=== PATIENT | female | born 1965 | race African-American/Black ===

== ENCOUNTER 2016-11-02 12:18 | Emergency (ER) | payer OTHER ==
--- NOTE | 2016-11-02 14:03 | ED ---
Headache - HPI Summary HPI Summary: Patient is a 51yo F with no onset AZEVEDO. She does not have a history of migraines and notes the AZEVEDO is "worst of life." The pain is located in the occipital area and does not radiate. She also notes to "pressure" over the temporal region. Onset of AZEVEDO was 2 days ago and improved with Ibuprofen. She was able to go to work today and felt a 2/10 pain AZEVEDO this am upon wakening. During the day, the AZEVEDO became worse and now she notes to 10/10. She endorses photophobia and nausea with 1 episode of vomiting yesterday. Shes states she has not eaten yet today. Denies HTN or other cardiac history. Denies thyroid hx. Denies OCP use , recent travel or smoking. She takes no medications and is otherwise healthy. - History Of Current Complaint Chief Complaint: EDHeadache Stated Complaint: HEADACHE Time Seen by Provider: 11/02/16 12:58 Hx Obtained From: Patient Hx Last Menstrual Period: 28 days ago Onset/Duration: Sudden Onset Initially Headache Was: "Worst Headache Ever", Initial Pain Scale(0-10)= - 10 Timing: Constant Character: Sharp, Throbbing Location of Headache: Occipital Aggravating Factor: Bright Lights Associated Signs And Symptoms: Nausea - Risk Factors SAH Risk Factors: -Sudanese Meningitis Risk Factors: Negative SDH Risk Factors: Negative Temporal Arteritis Risk Factors: Female - Allergies/Home Medications Allergies/Adverse Reactions: Allergies Allergy/AdvReac Type Severity Reaction Status Date / Time No Known Allergies Allergy Verified 11/02/16 12:20 PMH/Surg Hx/FS Hx/Imm Hx Previously Healthy: Yes Endocrine/Hematology History: Reports: Hx Anemia Denies: Hx Diabetes, Hx Thyroid Disease Cardiovascular History: Denies: Hx Hypertension, Other Cardiovascular Problems/Disorders Respiratory History: Denies: Hx Asthma, Hx Chronic Obstructive Pulmonary Disease (COPD), Other Respiratory Problems/Disorders GI History: Denies: Hx Ulcer, Other GI Disorders Musculoskeletal History: Denies: Other Musculoskeletal History Sensory History: Reports: Hx Contacts or Glasses - GLASSES Denies: Hx Hearing Aid Opthamlomology History: Reports: Hx Contacts or Glasses - GLASSES Neurological History: Denies: Other Neuro Impairments/Disorders - Surgical History Surgery Procedure, Year, and Place: TONSILLECTOMY-AGE 22. 3 [id number]/ [facility] [place]. tTIB/FIB FRACTURE LEFT ANKLE REPAIR-[facility]. RIGHT CARPAL TUNNEL RELEASE-2008 -[facility]. 3 ABORTIONS WHEN YOUNGER Hx Anesthesia Reactions: No Infectious Disease History: No Infectious Disease History: Denies: Hx Hepatitis, Hx Human Immunodeficiency Virus (HIV), Traveled Outside the [place] in Last 30 Days - Social History Alcohol Use: Weekly Alcohol Amount: WEEKENDS Substance Use Type: Reports: None Smoking Status (MU): Former Smoker Type: Cigarettes Amount Used/How Often: 1 PPD X 12 YRS Length of Time of Smoking/Using Tobacco: 12 YRS Have You Smoked in the Last Year: No Review of Systems Constitutional: Negative Positive: Photophobia ENT: Negative Cardiovascular: Negative Respiratory: Negative Positive: no symptoms reported, see HPI Musculoskeletal: Negative Positive: Headache, Weakness Psychological: Normal All Other Systems Reviewed And Are Negative: Yes Physical Exam Triage Information Reviewed: Yes Vital Signs On Initial Exam: Initial Vitals Temp Pulse Resp BP Pulse Ox 98.3 F 67 16 172/90 100 11/02/16 12:21 11/02/16 12:21 11/02/16 12:21 11/02/16 12:21 11/02/16 12:21 Vital Signs Reviewed: Yes Appearance: Positive: Ill-Appearing, Pain Distress Skin: Positive: Warm, Skin Color Reflects Adequate Perfusion Head/Face: Positive: Normal Head/Face Inspection Eyes: Positive: EOMI, GREGORIO, Conjunctiva Clear Neck: Positive: Supple, No Lymphadenopathy Respiratory/Lung Sounds: Positive: Clear to Auscultation, Breath Sounds Present Cardiovascular: Positive: Normal, RRR Musculoskeletal: Positive: Normal Neurological: Positive: Normal, Sensory/Motor Intact, Alert, Oriented to Person Place, Time, Normal Gait, Speech Normal Psychiatric: Positive: Normal AVPU Assessment: Alert - Jing Coma Scale Best Eye Response: 4 - Spontaneous Best Motor Response: 6 - Obeys Commands Best Verbal Response: 5 - Oriented Coma Scale Total: 15 Diagnostics - Vital Signs Vital Signs Temp Pulse Resp BP Pulse Ox 11/02/16 13:00 60 138/76 99 11/02/16 12:44 64 99 11/02/16 12:42 136/73 11/02/16 12:21 98.3 F 67 16 172/90 100 - Laboratory Result Diagrams: 11/02/16 14:55 11/02/16 14:55 Lab Statement: Any lab studies that have been ordered have been reviewed, and results considered in the medical decision making process. Headache Course/Dx - Course Course Of Treatment: New onset AZEVEDO in a 51yo female. Occipital AZEVEDO with neck pain. Sudden onset was yesterday, improved with Ibuprofen, then worse today which did not improve with Ibuprofen. Photophobia and nausea associated. "Worst AZEVEDO of life" prompted CT brain. Negative for findings. Benadryl 50mg, Toradol (post CT) 30mg IV, Compazine 10mg and 1L fluid given. Patient improved and notes 0/10 pain. LP performed by Dr. Stein with Morena Velasquez PA-C assisting. Patient requested stopping LP after procedure had begun. Patient agreeable to CTA with the understanding the test is not conclusive and will not r/o meningitis, but can r/o SAH. CTA negative. Patient prefers discharge and will follow up with PCP. Explained to patient this could be new onset migraines and she needs a close follow up after discharge. She agrees. No scripts sent, as patient feeling better. - Diagnoses Differential Diagnosis/HQI/PQRI: Subdural Hematoma, Meningitis, Migraine, Tension Headache Provider Diagnoses: Headache Discharge - Discharge Plan Condition: Stable Disposition: HOME Patient Education Materials: Migraine Headache (ED) Referrals: Jamie Mullen MD [Primary Care Provider] - Additional Instructions: Follow up with PCP.
--- NOTE | 2016-11-02 14:04 | RAD ---
Indication: Worst headache of life. Severe headaches. CT of the brain was performed without IV contrast. Comparison is made with previous exam dated October 05, 2002. Ventricular structures are midline. No midline shift is noted. The extra-axial spaces are unremarkable. There is no evidence of intracranial mass or hemorrhage. No other high or low density lesions are identified. Mastoid air cells and paranasal sinuses are otherwise unremarkable. IMPRESSION: There is no evidence of intracranial mass or hemorrhage noted.
[2016-11-02] MEDS ORDERED: Ketorolac INJ* 30 MG/ML 1 ML VIAL IV ONE (14:17)
[2016-11-02] MEDS ORDERED: diPHENhydraMINE IV* 50 MG/ML 1 ml VIAL (BENADRYL) IM ONE (14:17)
[2016-11-02] MEDS ORDERED: PROCHLORPERAZINE INJ 5 MG/ML 2 ML VIAL IV PRN (14:18)
[2016-11-02] MEDS ORDERED: diPHENhydraMINE IV* 50 MG/ML 1 ml VIAL (BENADRYL) IV ONE (14:19)
[2016-11-02 15:05] LABS: Hematocrit 37 % (35-47); Hemoglobin 11.7 g/dl (12.0-16.0); Mean Corpuscular HGB Conc 32 g/dl (31-36); Mean Corpuscular Hemoglobin 25 pg (27-31); Mean Corpuscular Volume 80 fL (80-97); Mean Platelet Volume 9 um3 (7.4-10.4); Red Cell Distribution Width 15 % (10.5-15); White Blood Count 7.9 10^3/ul (3.5-10.8)
[2016-11-02 15:24] LABS: BUN/Creatinine Ratio 12.5 (8-20); Calcium 8.9 mg/dL (8.6-10.3); EGFR African American 125.8 (>60); EGFR Non-African American 97.8 (>60); Globulin 3.1 g/dL (2-4); Potassium 3.4 mmol/L (3.5-5.0); Total Bilirubin 0.4 mg/dL (0.2-1.0); Total Protein 7.1 g/dL (6.4-8.9)
[2016-11-02 16:04] LABS: Erythrocyte Sed Rate 22 mm/Hr (0-30)
[2016-11-02] MEDS ORDERED: Iohexol 350* (CONTRAST) 500 ML MDV IV ONE (16:54)
--- NOTE | 2016-11-02 17:33 | RAD ---
HISTORY: Headache COMPARISONS: Head CT dated November 02, 2016 TECHNIQUE: Multiple contiguous axial CT scans were obtained of the head and neck After the administration of nonionic intravenous contrast timed to the systemic arterial phase of contrast enhancement. Coronal and sagittal multiplanar reformations are submitted for review. Multiple 3-D maximum intensity projection reconstructions are also submitted for review. FINDINGS: CTA NECK: AORTIC ARCH: There is a normal three-vessel branching pattern of the aortic arch. There is no ostial or proximal stenosis of the cephalic great vessels. RIGHT VERTEBRAL ARTERY: The right vertebral artery is patent along its course, without stenosis. LEFT VERTEBRAL ARTERY: The left vertebral artery is patent along its course, without stenosis. DOMINANCE: The vertebral arteries are codominant. RIGHT COMMON CAROTID ARTERY: The right common carotid artery is patent. The right carotid bifurcation occurs at C4-C5 RIGHT INTERNAL CAROTID ARTERY: There is no right internal carotid artery stenosis by NASCET criteria. RIGHT EXTERNAL CAROTID ARTERY: The right external carotid artery is unremarkable. LEFT COMMON CAROTID ARTERY: The left common carotid artery is patent. The left carotid bifurcation occurs at C4-C5 LEFT INTERNAL CAROTID ARTERY: There is no left internal carotid artery stenosis by NASCET criteria. LEFT EXTERNAL CAROTID ARTERY: The left external carotid artery is unremarkable. VENOUS CIRCULATION: The venous system is unremarkable. SALIVARY GLANDS: The parotid glands, submandibular glands, sublingual glands are normal. NASAL CAVITY/NASOPHARYNX: The nasal cavity and nasopharynx are normal. ORAL CAVITY/OROPHARYNX: The oral cavity is obscured by streak artifact from dental amalgam. The visualized oral cavity and oropharynx are unremarkable. LARYNGEAL APPARATUS/HYPOPHARYNX: The laryngeal apparatus and hypopharynx are normal. UPPER AIRWAY/UPPER ESOPHAGUS: The visualized upper airway and esophagus are normal. LUNG APICES: The lung apices are clear. THYROID GLAND: The thyroid gland is normal. LYMPH NODES: There is no lymphadenopathy by size criteria. BONES AND SOFT TISSUES: No bone or soft tissue abnormalities are noted. CTA HEAD: INTRACRANIAL CIRCULATION: There is no aneurysm, vascular malformation, occlusion, or stenosis of the visualized intracranial circulation. The anterior communicating artery complex is clear. Bilateral posterior communicating arteries are identified. VENOUS CIRCULATION: The venous system is unremarkable. PERFUSION: There is no obvious parenchymal perfusion deficit. HEMORRHAGE/INFARCT: There is no hemorrhage or acute infarct. MASSES/SHIFT: There is no mass or shift. EXTRA-AXIAL SPACES: There are no extra-axial fluid collections. SULCI AND VENTRICLES: The sulci and ventricles are normal in size and position for the patient's stated age. CEREBRUM: There are no focal parenchymal abnormalities. BRAINSTEM: There are no focal parenchymal abnormalities. CEREBELLUM: There are no focal parenchymal abnormalities. PARANASAL SINUSES: The paranasal sinuses are clear. ORBITS: The orbits are unremarkable. BONES AND SOFT TISSUE: No bone or soft tissue abnormalities are noted. OTHER: There is no abnormal enhancement. IMPRESSION: 1. NO INTERNAL CAROTID ARTERY STENOSIS BY NASCET CRITERIA. 2. NO ANEURYSM, VASCULAR MALFORMATION, OCCLUSION, OR STENOSIS OF THE VISUALIZED INTRACRANIAL CIRCULATION. CPT II Codes: 3100F
[2016-11-02 17:42] VITALS: BP 119/60
== END 2016-11-02 18:00 | disposition home or self-care (01) ==
LOC: ED 12:18
DX: R51 Headache (principal); R53.1 Weakness; Z87.891 Personal history of nicotine dependence; H53.142 Visual discomfort, left eye
CPT/HCPCS: 36415; 70450; 70496; 70498; 80053; 85025; 85652; 96374; 96375; 99284; J0780; J1200; J1885; Q9967

== ENCOUNTER 2016-12-19 23:44 | Emergency (ER) | payer OTHER ==
--- NOTE | 2016-12-20 02:41 | ED ---
Max Hernández Aidan, scribed for Jonna Lofton MD on 12/20/16 at 0052 . Lower Extremity - HPI Summary HPI Summary: 51 y/o female presents to the ED with a complaint of an acute, constant, moderate, newly formed varicose vein in the left leg. Just KIER TENDER, when she sat up from lying down, she had an acute, moderate, burning sensation in her left leg and witnessed a vein in her left leg protrude. She denies any previous Hx of varicose veins, any other medical problems, or any allergies to medications. In 2 days, she is scheduled to fly to [place]. - History of Current Complaint Chief Complaint: EDExtremityLower Stated Complaint: LT LEG PAIN/BULGE IN VEIN Time Seen by Provider: 12/20/16 00:12 Hx Obtained From: Patient Hx Last Menstrual Period: 28 days ago Mechanism Of Injury: Unknown - however, during onset, Pt sat up from lying down Onset of Pain: Immediate - during onset, she had a burning sensation in the left leg where the vein protruded Onset/Duration: Still Present - though the burning sensation has subsided, she still has a protruding vein in the left leg Severity Initially: Moderate Severity Currently: Moderate Pain Intensity: 0 Pain Scale Used: 0-10 Numeric Timing: Constant Location: Is Discrete @ - left leg on the borjas Character Of Pain: Burning - burning sensation during onset Associated Signs And Symptoms: Positive: Negative - other than the burning sensation during onset Aggravating Factor(s): Other - unknown Alleviating Factor(s): Other - unknown Able to Bear Weight: Yes - Risk Factors Gout Risk Factors: Age Over 40 - Allergies/Home Medications Allergies/Adverse Reactions: Allergies Allergy/AdvReac Type Severity Reaction Status Date / Time No Known Allergies Allergy Verified 11/02/16 12:20 PMH/Surg Hx/FS Hx/Imm Hx Endocrine/Hematology History: Reports: Hx Anemia Denies: Hx Diabetes, Hx Thyroid Disease Cardiovascular History: Denies: Hx Hypertension, Other Cardiovascular Problems/Disorders Respiratory History: Denies: Hx Asthma, Hx Chronic Obstructive Pulmonary Disease (COPD), Other Respiratory Problems/Disorders GI History: Denies: Hx Ulcer, Other GI Disorders Musculoskeletal History: Denies: Other Musculoskeletal History Sensory History: Reports: Hx Contacts or Glasses - GLASSES Denies: Hx Hearing Aid Opthamlomology History: Reports: Hx Contacts or Glasses - GLASSES Neurological History: Denies: Other Neuro Impairments/Disorders - Surgical History Surgery Procedure, Year, and Place: TONSILLECTOMY-AGE 22. 3 [id number]/ [facility] – [place]. tTIB/FIB FRACTURE LEFT ANKLE REPAIR[place] [place]. RIGHT CARPAL TUNNEL RELEASE-2008 -[facility] [place]. 3 ABORTIONS WHEN YOUNGER Hx Anesthesia Reactions: No Infectious Disease History: No Infectious Disease History: Denies: Hx Hepatitis, Hx Human Immunodeficiency Virus (HIV), Traveled Outside the [place] in Last 30 Days - Family History Known Family History: Positive: Hypertension - Social History Occupation: Employed Full-time Lives: With Family Alcohol Use: Weekly Alcohol Amount: WEEKENDS Substance Use Type: Reports: None Smoking Status (MU): Former Smoker Type: Cigarettes Amount Used/How Often: 1 PPD X 12 YRS Length of Time of Smoking/Using Tobacco: 12 YRS Have You Smoked in the Last Year: No Review of Systems Constitutional: Negative Eyes: Negative ENT: Negative Cardiovascular: Negative Respiratory: Negative Gastrointestinal: Negative Genitourinary: Negative Positive: Other - protruding vein in the left leg that had an associated burning sensation during onset. Negative: Arthralgia, Myalgia, Decreased ROM, Edema Skin: Negative Neurological: Negative Psychological: Normal All Other Systems Reviewed And Are Negative: Yes Physical Exam - Summary Physical Exam Summary: General: Well appearing, no pain distress Skin: Warm, Skin Color Reflects Adequate Perfusion, Dry Eyes: EOMI, GREGORIO ENT: Pharynx normal, TMs normal Neck: Supple, nontender Respiratory: CTA, breath sounds present, no rhonchi, no wheezes, no rales Cardiovascular: RRR, no murmur, no rub, no gallop Abdomen: Soft, nontender, Non-distended, no guarding, no rebound Bowel: Present Musculoskeletal: MARIA L, No edema; POSITIVE: Varicose vein over the left borjas, very mildly tender to palpation Neuro: Sensory/motor intact, A&Ox3, CN intact 2-12 Psych: Affect/mood appropriate Triage Information Reviewed: Yes Vital Signs On Initial Exam: Initial Vitals Temp Pulse Resp Pulse Ox 97.8 F 99 19 98 12/19/16 23:48 12/19/16 23:48 12/19/16 23:48 12/19/16 23:48 Vital Signs Reviewed: Yes Diagnostics - Vital Signs Vital Signs Temp Pulse Resp BP Pulse Ox 12/19/16 23:50 98.7 F 90 19 151/87 100 12/19/16 23:48 97.8 F 99 19 98 - Laboratory Lab Statement: Any lab studies that have been ordered have been reviewed, and results considered in the medical decision making process. - Ultrasound No standard instances Ultrasound Interpretation: No Acute Changes - LE VEIN IMPRESSION: Left lower extremity venous duplex negative for deep thrombosis Lower Extremity Course/Dx - Course Course Of Treatment: small varicose vein on ant leg otherwise normal exam, doppler neg ok to go home - Diagnoses Provider Diagnoses: vericose veins Discharge - Discharge Plan Condition: Stable Disposition: HOME Discharge Disposition Comment: Please follow up with your primary care provider within 3 days. Referrals: No Primary Care Phys,NOPCP [Primary Care Provider] - The documentation as recorded by the Max rose Aidan accurately reflects the service I personally performed and the decisions made by me, Jonna Lofton MD.
[2016-12-20 02:50] VITALS: BP 122/77
--- NOTE | 2016-12-20 12:28 | RAD ---
HISTORY: Lower extremity pain and swelling TECHNIQUE: Multiple transverse and longitudinal ultrasound images were obtained of the veins of the left lower extremity pain using grayscale, color Doppler, and spectral Doppler imaging with and without compression and with augmentation. FINDINGS: VEINS: The common femoral vein, deep femoral vein, femoral vein and popliteal vein are compressible throughout their course, with normal flow on color Doppler imaging and normal response to augmentation on spectral Doppler imaging. SOFT TISSUES: Grossly normal. No large popliteal fossa cyst was identified. IMPRESSION: No sonographic evidence of deep vein thrombosis.
== END 2016-12-20 02:49 | disposition home or self-care (01) ==
LOC: ED 23:44
DX: I83.92 Asymptomatic varicose veins of left lower extremity (principal); R60.0 Localized edema; D64.9 Anemia, unspecified; Z87.891 Personal history of nicotine dependence
CPT/HCPCS: 99282

== ENCOUNTER 2017-04-10 10:24 | Emergency (ER) | payer OTHER ==
[2017-04-10] MEDS ORDERED: Morphine INJ* 4 MG/ML 1 ML CARPUJECT IV ONE ×2 (11:10→13:49)
[2017-04-10] MEDS ORDERED: Ondansetron INJ* 2 MG/ML VIAL IV ONE (11:10)
[2017-04-10 11:14] LABS: Hematocrit 38 % (35-47); Hemoglobin 12.3 g/dl (12.0-16.0); Mean Corpuscular HGB Conc 33 g/dl (31-36); Mean Corpuscular Hemoglobin 26 pg (27-31); Mean Corpuscular Volume 80 fL (80-97); Mean Platelet Volume 9 um3 (7.4-10.4); Red Blood Count 4.72 10^6/ul (4.0-5.4); Red Cell Distribution Width 16 % (10.5-15); White Blood Count 12.7 10^3/ul (3.5-10.8)
[2017-04-10 11:37] LABS: Albumin 4.2 g/dL (3.2-5.2); BUN/Creatinine Ratio 13.9 (8-20); C Reactive Protein 4.29 mg/L (< 5.00); EGFR African American 98.7 (>60); EGFR Non-African American 76.7 (>60); Globulin 3.3 g/dL (2-4); Total Bilirubin 0.3 mg/dL (0.2-1.0); Total Protein 7.5 g/dL (6.4-8.9)
[2017-04-10] MEDS ORDERED: Iohexol 300* (CONTRAST) 10 ML SDV IV ONE (11:48)
[2017-04-10 12:14] LABS: Potassium 3.8 mmol/L (3.5-5.0)
--- NOTE | 2017-04-10 13:54 | RAD ---
CLINICAL HISTORY: Right lower quadrant pain COMPARISON: None relevant available at the time of dictation TECHNIQUE: Multiple contiguous axial CT scans were obtained of the abdomen and pelvis after the administration of intravenous contrast. Coronal and sagittal multiplanar reformations are submitted for review. Oral contrast was administered. Delayed images were obtained through the abdomen and pelvis. FINDINGS: LUNG BASES: The lung bases are clear. LIVER: There are small low-attenuation lesions of the right lobe of liver. These are too small to definitively characterize but statistically most likely represents small hepatic cysts versus hemangiomas. BILE DUCTS: There is no intrahepatic or extrahepatic biliary dilatation. GALLBLADDER: Multiple gallstones are noted. There is no pericholecystic inflammatory change. PANCREAS: The pancreas is normal, without mass or ductal dilatation. SPLEEN: Normal in size and appearance. UPPER GI TRACT: Evaluation of the gastrointestinal tract is limited by incomplete gastric distention. The upper GI tract is unremarkable. SMALL BOWEL AND MESENTERY: The small bowel is normal in contour, course, and caliber. There is no obstruction or dilatation. COLON: The colon is normal in contour, course, caliber. There is no pericolonic inflammatory change. There is a tubular, vermiform, hollow viscus that is blind ending, and originates from the cecum, consistent with a normal appendix. There is no periappendiceal inflammatory change. This is best seen on axial images 50 through 54. ADRENALS: Normal bilaterally. KIDNEYS: The right kidney is edematous. There is perinephric stranding on the right. There is mild pelvocaliectasis and hydroureter. There is a 0.4 cm calculus of the right UVJ BLADDER: The bladder isn't completely distended. As noted above, there is a calculus of the right UVJ. PELVIC ORGANS: The uterus is lobulated and enlarged consistent with uterine fibroids. AORTA: There is calcific atherosclerotic disease of the abdominal aorta and its branches, without aneurysmal dilatation IVC: Unremarkable LYMPH NODES: There is no lymphadenopathy by size criteria. ABDOMINAL WALL: There is no evidence for abdominal wall hernia. BONES AND SOFT TISSUES: Degenerative changes are noted of the spine. OTHER: None IMPRESSION: 1. MILD RIGHT SIDED HYDRONEPHROSIS WITH A 0.4 CM RIGHT UVJ STONE AND RIGHT PERINEPHRIC INFLAMMATORY CHANGE. 2. NORMAL APPENDIX. 3. FIBROID UTERUS
[2017-04-10] MEDS ORDERED: Ketorolac INJ* 30 MG/ML 1 ML VIAL IV PUSH ONE (14:13)
[2017-04-10 15:25] VITALS: BP 151/77
[2017-04-10 15:53] LABS: Urine Bilirubin Negative (Negative); Urine Glucose Negative (Negative); Urine Nitrite Negative (Negative)
--- NOTE | 2017-04-16 12:33 | ED ---
Toya Hernández SooYoung, scribed for Mathew Stein MD on 04/10/17 at 1115 . Abdominal Pain/Female - HPI Summary HPI Summary: A 51 y/o F presents to ED with worsening R-sided abd pain onset this AM. Associated sx: chills, vomiting. Denies back pain, fever, dysuria, hematuria. She states feeling fine last night. Non-smoker. She states her menstrual cycle is on time. SHx: 3 C-sections, tibia fx. 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 Negative: Fever, Back Pain, Urinary Symptoms Allergies/Adverse Reactions: Allergies Allergy/AdvReac Type Severity Reaction Status Date / Time No Known Allergies Allergy Verified 04/10/17 10:33 PMH/Surg Hx/FS Hx/Imm Hx Previously Healthy: No Endocrine/Hematology History: Reports: Hx Anemia Denies: Hx Diabetes, Hx Thyroid Disease Cardiovascular History: Denies: Hx Hypertension, Other Cardiovascular Problems/Disorders Respiratory History: Denies: Hx Asthma, Hx Chronic Obstructive Pulmonary Disease (COPD), Other Respiratory Problems/Disorders GI History: Denies: Hx Ulcer, Other GI Disorders Musculoskeletal History: Denies: Other Musculoskeletal History Sensory History: Reports: Hx Contacts or Glasses - GLASSES Denies: Hx Hearing Aid Opthamlomology History: Reports: Hx Contacts or Glasses - GLASSES Neurological History: Denies: Other Neuro Impairments/Disorders - Surgical History Surgery Procedure, Year, and Place: TONSILLECTOMY-AGE 22. 3 T-[id number]-[id number]/ [facility] [place]. tTIB/FIB FRACTURE LEFT ANKLE REPAIR-[facility] [place]. RIGHT CARPAL TUNNEL RELEASE-[address] [place]. 3 ABORTIONS WHEN YOUNGER Hx Anesthesia Reactions: No Infectious Disease History: No Infectious Disease History: Denies: Hx Hepatitis, Hx Human Immunodeficiency Virus (HIV), Traveled Outside the [place] in Last 30 Days - Family History Known Family History: Positive: Hypertension - Social History Occupation: Employed Full-time Lives: With Family Alcohol Use: Weekly Alcohol Amount: WEEKENDS Hx Substance Use: No Substance Use Type: Reports: None Hx Tobacco Use: Yes Smoking Status (MU): Former Smoker Type: Cigarettes Amount Used/How Often: 1 PPD X 12 YRS Length of Time of Smoking/Using Tobacco: 12 YRS Have You Smoked in the Last Year: No Review of Systems All Other Systems Reviewed And Are Negative: Yes Physical Exam - Summary Physical Exam Summary: Constitutional: Well-developed, Well-nourished, Alert. (-) Distressed. Actively vomiting. Skin: Warm, Dry HENT: Normocephalic; Atraumatic Eyes: Conjunctiva normal Neck: Musculoskeletal ROM normal neck. (-) JVD, (-) Stridor, (-) Tracheal deviation Cardio: Rhythm regular, rate normal, Heart sounds normal; Intact distal pulses; The pedal pulses are 2+ and symmetric. Radial pulses are 2+ and symmetric. (-) Murmur Pulmonary/Chest wall: Effort normal. (-) Respiratory distress, (-) Wheezes, (-) Rales Abd: Soft, mild R CVA and RLQ Tenderness, (-) Distension, (-) Guarding, (-) Rebound Musculoskeletal: (-) Edema Lymph: (-) Cervical adenopathy Neuro: Alert, Oriented x3 Psych: Mood and affect Normal Triage Information Reviewed: Yes Vital Signs On Initial Exam: Initial Vitals Temp Pulse Resp BP Pulse Ox 97.2 F 62 20 127/68 99 04/10/17 10:25 04/10/17 10:25 04/10/17 10:25 04/10/17 10:25 04/10/17 10:25 Vital Signs Reviewed: Yes - Farrell Coma Scale Coma Scale Total: 15 Diagnostics - Vital Signs Vital Signs Temp Pulse Resp BP Pulse Ox 04/10/17 11:00 65 100 04/10/17 10:43 59 96 04/10/17 10:42 124/87 04/10/17 10:25 97.2 F 62 20 127/68 99 - Laboratory Lab Results: Lab Results 04/10/17 04/10/17 04/10/17 Range/Units 11:00 11:00 11:00 WBC 12.7 H (3.5-10.8) 10^3/ul RBC 4.72 (4.0-5.4) 10^6/ul Hgb 12.3 (12.0-16.0) g/dl Hct 38 (35-47) % MCV 80 (80-97) fL MCH 26 L (27-31) pg MCHC 33 (31-36) g/dl RDW 16 H (10.5-15) % Plt Count 303 (150-450) 10^3/ul MPV 9 (7.4-10.4) um3 Neut % (Auto) 85.9 H (38-83) % Lymph % (Auto) 8.9 L (25-47) % [place] % (Auto) 4.4 (1-9) % Eos % (Auto) 0.3 (0-6) % Baso % (Auto) 0.5 (0-2) % Absolute Neuts (auto) 10.9 H (1.5-7.7) 10^3/ul Absolute Lymphs (auto) 1.1 (1.0-4.8) 10^3/ul Absolute Monos (auto) 0.6 (0-0.8) 10^3/ul Absolute Eos (auto) 0 (0-0.6) 10^3/ul Absolute Basos (auto) 0.1 (0-0.2) 10^3/ul Absolute Nucleated RBC 0 10^3/ul Nucleated RBC % 0 Sodium 136 (133-145) mmol/L Potassium 3.8 (3.5-5.0) mmol/L Chloride 105 (101-111) mmol/L Carbon Dioxide 22 (22-32) mmol/L Anion Gap 9 (2-11) mmol/L BUN 11 (6-24) mg/dL Creatinine 0.79 (0.51-0.95) mg/dL Est GFR ( Amer) 98.7 (>60) Est GFR (Non-Af Amer) 76.7 (>60) BUN/Creatinine Ratio 13.9 (8-20) Glucose 122 H (70-100) mg/dL Lactic Acid 2.2 H* (0.5-2.0) mmol/L Calcium 9.0 (8.6-10.3) mg/dL Total Bilirubin 0.30 (0.2-1.0) mg/dL AST 25 (13-39) U/L ALT 18 (7-52) U/L Alkaline Phosphatase 48 (34-104) U/L C-Reactive Protein 4.29 (< 5.00) mg/L Total Protein 7.5 (6.4-8.9) g/dL Albumin 4.2 (3.2-5.2) g/dL Globulin 3.3 (2-4) g/dL Albumin/Globulin Ratio 1.3 (1-3) Lipase 12 (11.0-82.0) U/L Urine Color Urine Appearance Urine pH (5-9) Ur Specific [place] (1.010-1.030) Urine Protein (Negative) Urine Ketones (Negative) Urine Blood (Negative) Urine Nitrate (Negative) Urine Bilirubin (Negative) Urine Urobilinogen (Negative) Ur Leukocyte Esterase (Negative) Urine Glucose (Negative) 04/10/17 Range/Units 15:40 WBC (3.5-10.8) 10^3/ul RBC (4.0-5.4) 10^6/ul Hgb (12.0-16.0) g/dl Hct (35-47) % MCV (80-97) fL MCH (27-31) pg MCHC (31-36) g/dl RDW (10.5-15) % Plt Count (150-450) 10^3/ul MPV (7.4-10.4) um3 Neut % (Auto) (38-83) % Lymph % (Auto) (25-47) % [place] % (Auto) (1-9) % Eos % (Auto) (0-6) % Baso % (Auto) (0-2) % Absolute Neuts (auto) (1.5-7.7) 10^3/ul Absolute Lymphs (auto) (1.0-4.8) 10^3/ul Absolute Monos (auto) (0-0.8) 10^3/ul Absolute Eos (auto) (0-0.6) 10^3/ul Absolute Basos (auto) (0-0.2) 10^3/ul Absolute Nucleated RBC 10^3/ul Nucleated RBC % Sodium (133-145) mmol/L Potassium (3.5-5.0) mmol/L Chloride (101-111) mmol/L Carbon Dioxide (22-32) mmol/L Anion Gap (2-11) mmol/L BUN (6-24) mg/dL Creatinine (0.51-0.95) mg/dL Est GFR ( Amer) (>60) Est GFR (Non-Af Amer) (>60) BUN/Creatinine Ratio (8-20) Glucose (70-100) mg/dL Lactic Acid (0.5-2.0) mmol/L Calcium (8.6-10.3) mg/dL Total Bilirubin (0.2-1.0) mg/dL AST (13-39) U/L ALT (7-52) U/L Alkaline Phosphatase (34-104) U/L C-Reactive Protein (< 5.00) mg/L Total Protein (6.4-8.9) g/dL Albumin (3.2-5.2) g/dL Globulin (2-4) g/dL Albumin/Globulin Ratio (1-3) Lipase (11.0-82.0) U/L Urine Color Straw Urine Appearance Clear Urine pH 7.0 (5-9) Ur Specific [place] 1.059 H (1.010-1.030) Urine Protein Negative (Negative) Urine Ketones Negative (Negative) Urine Blood Negative (Negative) Urine Nitrate Negative (Negative) Urine Bilirubin Negative (Negative) Urine Urobilinogen Negative (Negative) Ur Leukocyte Esterase Negative (Negative) Urine Glucose Negative (Negative) Result Diagrams: 04/10/17 11:00 04/10/17 11:00 Lab Statement: Any lab studies that have been ordered have been reviewed, and results considered in the medical decision making process. - CT A/P CT CT Interpretation: Positive (See Comments) - IMPRESSION: 1. MILD RIGHT SIDED HYDRONEPHROSIS WITH A 0.4 CM RIGHT UVJ STONE AND RIGHT PERINEPHRIC INFLAMMATORY CHANGE. 2. NML APPENDIX. 3. FIBROID UTERUS. ED physician has reviewed this radiology report and agrees CT Interpretation Completed By: Radiologist Re-Evaluation - Re-Evaluation 1 Re-Evaluation Time: 14:46 Change: Unchanged Comment: Discussing results with pt and family. Pt still in pain, yet to receive Toradol. 2 Re-Evaluation Time: 15:21 Change: Improved Comment: Pt is feeling better after the toradol. Abdominal Pain Fem Course/Dx - Course Course Of Treatment: A 51 y/o F presents to ED with worsening R-sided abd pain onset this AM. Associated sx: chills, vomiting. Denies back pain, fever, dysuria , hematuria. She states feeling fine last night. Non-smoker. She states her menstrual cycle is on time. SHx: 3 C-sections, tibia fx. Pt given Toradol, morphine, zofran in ED. Bloodwork is without significant abnormality, except lactic acid is 2.2. UA results are neg for infection. Abd/Pel CT shows "IMPRESSION: 1. MILD RIGHT SIDED HYDRONEPHROSIS WITH A 0.4 CM RIGHT UVJ STONE AND RIGHT PERINEPHRIC INFLAMMATORY CHANGE. 2. NML APPENDIX. 3. FIBROID UTERUS." . Dispo home with Toradol, Zofran, Flomax and Ultram to f/u with urology. - Diagnoses Provider Diagnoses: Ureteral stone Discharge - Discharge Plan Condition: Stable Disposition: HOME Prescriptions: Ketorolac TAB * [Toradol TAB *] 10 mg PO Q8H #10 tab Ondansetron ODT TAB* [Zofran 4 MG Odt TAB*] 4 mg PO Q8H PRN #12 tab.odt PRN Reason: Nausea/Vomiting Tamsulosin CAP* [Flomax CAP*] 0.4 mg PO DAILY #7 cap traMADol TAB* [Ultram*] 50 mg PO Q6HR PRN #12 tab MDD 4 PRN Reason: Pain Scale 6-10 Patient Education Materials: Ureteral Stones (ED), Ondansetron (By mouth), Ketorolac (By mouth), Tamsulosin (By mouth), Tramadol (By mouth) Referrals: Vanda Branch MD [Primary Care Provider] - Christiano Clark MD [Medical Doctor] - 2 Days Additional Instructions: Follow up with Dr. Clark, urology, in 2-3 days. Drink plenty of fluids. Please return to the ED if you experience uncontrollable pain or fever. The documentation as recorded by the Toya rose SooYoung accurately reflects the service I personally performed and the decisions made by me, Mathew Stein MD.
== END 2017-04-10 15:48 | disposition home or self-care (01) ==
LOC: ED 10:24
DX: N20.1 Calculus of ureter (principal); R11.10 Vomiting, unspecified; R10.9 Unspecified abdominal pain; Z87.891 Personal history of nicotine dependence; D25.9 Leiomyoma of uterus, unspecified
CPT/HCPCS: 36415; 74177; 80053; 81003; 83605; 83690; 85025; 86140; 96374; 96375; 99282; J1885; J2270; J2405; Q9967

== ENCOUNTER 2018-02-25 07:05 | Observation (INO) | payer OTHER ==
[2018-02-25 07:46] LABS: ABS Basophils 0 10^3/ul (0-0.2); ABS Eosinophils 0.2 10^3/ul (0-0.6); ABS Lymphocytes 1.8 10^3/ul (1.0-4.8); ABS Monocytes 0.5 10^3/ul (0-0.8); ABS Neutrophils 5.1 10^3/ul (1.5-7.7); ABS Nucleated RBC 0 10^3/ul; Eosinophil % 2.1 % (0-6); Hematocrit 40 % (35-47); Hemoglobin 13.4 g/dl (12.0-16.0); Mean Corpuscular HGB Conc 33 g/dl (31-36); Mean Corpuscular Hemoglobin 28 pg (27-31); Mean Corpuscular Volume 84 fL (80-97); Nucleated Red Blood Cells % 0; Platelet Count 314 10^3/ul (150-450); Red Blood Count 4.83 10^6/ul (4.00-5.40); Red Cell Distribution Width 14 % (10.5-15); White Blood Count 7.7 10^3/ul (3.5-10.8)
[2018-02-25 08:01] LABS: EGFR Non-African American 89.3 (>60)
[2018-02-25] MEDS ORDERED: Lidocaine 1%* 5 ML VIAL ONE (08:12)
[2018-02-25] MEDS ORDERED: Heparin 2 UNITS/ML IVPREMIX* 1,000 ML IV ONE (08:13)
[2018-02-25] MEDS ORDERED: Iohexol 350 (CONTRAST) 200 ML MDV IV ONE (08:13)
[2018-02-25] MEDS ORDERED: Scopolamine 1.5 mg* PATCH ONE (08:18)
[2018-02-25] MEDS ORDERED: LORazepam TAB(*) 1 MG ONE (08:18)
[2018-02-25] MEDS ORDERED: Naproxen TAB* 250 MG ONE (08:18)
[2018-02-25] MEDS ORDERED: oxyCODONE SR TAB(*) 10 MG TAB.SR ONE (08:19)
[2018-02-25] MEDS ORDERED: fentaNYL* 50 MCG/ML 2 ML VIAL (100 MCG VIAL) ONE ×2 (08:37→10:13)
[2018-02-25] MEDS ORDERED: Midazolam* 1 MG/ML 10 ML VIAL (10 MG) ONE (08:38)
[2018-02-25] MEDS ORDERED: Heparin(*) 1000 UNIT/ML 10 ML VIAL CATH LAB IV ONE (08:41)
[2018-02-25] MEDS ORDERED: nitroGLYCERIN DRIP* 25,000 MCG/250 ML BTL ONE (08:50)
[2018-02-25] MEDS ORDERED: Ketorolac INJ* 30 MG/ML 1 ML VIAL ONE (08:58)
[2018-02-25] MEDS ORDERED: Clindamycin 900 MG IVPREMIX(* 900 MG/50 ML SDV IV ONE (09:00)
[2018-02-25] MEDS ORDERED: Ondansetron INJ* 2 MG/ML VIAL ONE ×3 (09:05→11:20)
[2018-02-25] MEDS ORDERED: HYDROmorphone PCA* 20 MG/20 ML PCA.SYRING ONE (10:56)
[2018-02-25] MEDS ORDERED: HYDROmorphone PCA* 20 MG/20 ML PCA.SYRING PCA SCH ×2 (11:00→15:00)
[2018-02-25] MEDS ORDERED: HYDROmorphone INJ* 0.5 MG/0.5 ML SYRINGE ONE (11:03)
[2018-02-25] MEDS ORDERED: PROCHLORPERAZINE INJ 5 MG/ML 2 ML VIAL ONE (11:21)
[2018-02-25] MEDS ORDERED: NS 0.9% 1000 ML* 1,000 ML IVPB SCH (14:25)
[2018-02-25] MEDS ORDERED: Magnesium Hydroxide LIQ* 30 ML UDC PO PRN (14:56)
[2018-02-25] MEDS ORDERED: Albuterol 2.5 MG/3 ML NEB.SOL* (0.083%) INH PRN (14:56)
[2018-02-25] MEDS ORDERED: Al Hydrox/Mg Hydrox/Simet LIQ* 30 ML UDC PO PRN (14:56)
--- NOTE | 2018-02-25 15:59 | RAD ---
CPT II Codes: G9500 Procedure(s) performed: * Pelvic arteriogram including the lower abdominal aorta, bilateral iliac arteries including the proximal portions of the superficial femoral arteries and femoral profundi. * Catheter arteriography of the bilateral uterine arteries. * Catheter embolization of the bilateral uterine arteries. Date of service: February 25, 2018 Indication for procedure: Pelvic pain and heavy menstrual bleeding in the presence of adenomyosis and/or uterine fibroids Comparison: MRI of the pelvis with and without contrast dated December 16, 2017 Contrast: 70 mL Omnipaque 300 Fluoroscopy Time: 36.3 minutes Vessels Accessed: Percutaneous access was obtained with ultrasound guidance in the right common femoral artery in the retrograde direction towards the heart. Catheter arteriography was performed with the catheter tip in the following arteries: Aorta, left common iliac artery, Bilateral internal iliac arteries and Bilateral uterine arteries. Anesthesia: Conscious sedation with IV Fentanyl and Versed as well as local 1% lidocaine injected locally at the arteriotomy site. Conscious sedation time: Timeout: 851 hours Case end: 1105 hours Total conscious sedation time: 2 hours and 14 minutes Additional medications: * 700 mcg IA nitroglycerin injected intermittently throughout the course of the procedure to alleviate arterial spasm. * Intra-arterial Toradol, 15 mg injected into each uterine artery, for a total of 30 mg intra-arterial. * Intravenous Toradol, 30 mg. * Prior to the procedure the patient received: Ativan 1 mg p.o. Naproxen sodium 250 mg p.o. OxyContin 10 mg p.o. Scopolamine patch 1.5 mg transdermal applied to the mastoid process. Zofran 4 mg IV Antibiotic prophylaxis was provided by Clindamycin 900 mg IV Dilaudid 0.5 mg administered at the end of the procedure. PROCEDURE NOTE AND INTRAPROCEDURAL IMAGING FINDINGS: Immediately prior to the procedure the patient signed consent after thoroughly discussing all risks and benefits. The patient was positioned on the fluoroscopy table in the supine position and the bilateral groins were shaved, prepped and draped in standard sterile fashion. Using fluoroscopic imaging the location of the right common femoral head was marked externally with a skin marker on the patient's groin. Utilizing sonographic guidance and palpation the right common femoral artery was cannulated overlying the right femoral head with an 18-gauge needle. An ultrasound image was saved. A 035 inch Bentson wire was slowly and smoothly advanced to the aortic bifurcation under fluoroscopic imaging. No buckling of the wire was visualized to indicate dissection. The needle was removed and over the wire a 5-Israeli SideArm access sheath was advanced under fluoroscopic control until the tip terminated at the right external iliac artery. With the tip of a 5-Israeli catheter in the abdominal aorta and aortogram was performed demonstrating standard anatomy and hypertrophied bilateral uterine arteries greater on the left than the right. Utilizing a 0.035" wire and 5-Israeli RIM catheter the contralateral left common iliac artery was accessed. The wire was advanced under fluoroscopic control to the proximal left superficial femoral artery. The RIM catheter was removed and over the wire a 5 Israeli Merit Impress catheter was advanced over the iliac bifurcation and the reverse curve was formed in the lower abdominal aorta. Utilizing the reverse curve catheter and the wire the ipsilateral right common iliac artery was selected. With the tip of the catheter in the proximal most portion of the right internal iliac artery, angiography was performed to detail the branches of the right internal iliac artery and to locate the ostium of the right uterine artery. Arteriograms in multiple oblique projections were performed to best discern the branch point of the uterine artery. Once the uterine artery was identified, a microcatheter and microwire were advanced into the parent catheter and, in conjunction with contrast angiography, the uterine artery was identified and selected with the microcatheter and wire system. Prior to embolization, contrast injection into the horizontal portion of the uterine artery demonstrated no large, obvious collateral blood flow to the ovary or a definite cervicovaginal branch descending inferiorly. Intra-arterial nitroglycerin was injected intermittently to alleviate arterial spasm. Under fluoroscopic control 2 vials Embospheres 500-700 um were slowly injected into the right uterine artery to near complete stasis. Towards the end of embolization 15 mg of Toradol was injected intra-arterially. The microcatheter was pulled back into the more proximal descending portion of the uterine artery and contrast angiography depicted near complete stasis of the uterine artery. The microcatheter and microwire were removed. Contrast arteriography through the 5-Israeli catheter in the right internal iliac artery demonstrated patency and brisk flow through all branches of the internal iliac artery with the exception of the right uterine artery which demonstrates near complete stasis. The 0.035" wire was reinserted into the 5-Israeli catheter and the system was utilized to access the contralateral left internal iliac artery. With the tip of the 5 Israeli Merit Impress catheter in the proximal most portion of the left internal iliac artery, angiography was performed to detail the branches of the left internal iliac artery and to locate the ostium of the left uterine artery. Arteriograms in multiple oblique projections were performed to best discern the branch point of the uterine artery. Once the uterine artery was identified, the microcatheter and microwire were advanced into the parent catheter and, in conjunction with contrast angiography, the uterine artery was identified and selected with the microcatheter and wire system. Prior to embolization, contrast injection into the horizontal portion of the left uterine artery demonstrated no large, obvious collateral blood flow to the ovary or a definite cervicovaginal branch descending inferiorly. Intra-arterial nitroglycerin was injected intermittently to alleviate arterial spasm. Under fluoroscopic control 1 vial Embospheres 500-700 um and 2 vials Embospheres 700-900 um were slowly injected into the left uterine artery to near complete stasis. Towards the end of embolization 15 mg of Toradol was injected intra-arterially. The microcatheter was pulled back into the more proximal descending portion of the uterine artery and contrast angiography depicted near complete stasis of the uterine artery. The microcatheter and microwire were removed. Contrast arteriography through the 5-Israeli catheter in the left internal iliac artery demonstrated patency and brisk flow through all branches of the internal iliac artery with the exception of the left uterine artery which demonstrates near complete stasis. The 5-Israeli catheter and 0.035" wire were utilized to access the left external iliac artery which allowed a safe removal of the 5-Israeli Impress catheter. The wire was then removed from the sheath. The access sheath was removed and pressure was held at the common femoral arteriotomy for approximately 15 minutes. There were no signs of bleeding at the right groin access site and the site was dressed with sterile gauze and Tegaderm. The patient tolerated the procedure well and was transferred to the short stay recovery unit in stable condition for routine overnight observation and pain and nausea control. SUMMARY OF PROCEDURE, IMAGING FINDINGS AND INTERVENTIONS PERFORMED: 1. Diagnostic studies performed: * Arterial access was obtained at the right common femoral artery in the retrograde direction (i.e. towards the heart) with ultrasound guidance. A sonographic image was recorded. * Diagnostic catheter angiography (necessary to perform the appropriate interventions) was performed with the catheter tip in the aorta, left common iliac artery, bilateral internal iliac arteries and bilateral uterine arteries. * Catheter arteriography was performed of the abdominal aorta, bilateral iliac arterial system and specifically the bilateral uterine arteries. 2. Interpretation of diagnostic studies performed: * Greatly hypertrophied bilateral uterine arteries, dominant on the left, are identified providing arterial flow to the greatly enlarged uterus. * There was no definite identification of any focal round accumulations of contrast there are be consistent with uterine fibroids favoring a diagnosis of adenomyosis. 3. Surgical interventions performed: * Near stasis embolization of the bilateral uterine arteries utilizing. * Right uterine artery: 2 vials Embospheres 500-700 um * Left uterine artery: 1 vial Embospheres 500-700 um and 2 vials Embospheres 700-900 um 4. Interpretation of interventions performed: * Final arteriography demonstrated near complete stasis of the bilateral uterine arteries.. PLAN: 1. The patient will be admitted to short stay surgical unit for routine overnight observation including pain and nausea control. 2. Outpatient clinical and imaging follow-up according to the Interventional Radiology protocol.
[2018-02-25] MEDS: Ketorolac INJ* 15 MG/ML 1 ML VIAL IV PUSH SCH ×2 (16:38→22:31)
[2018-02-25] MEDS: Ondansetron INJ* 2 MG/ML VIAL IV SCH ×2 (16:38→22:31)
--- NOTE | 2018-02-25 20:12 | HP ---
CC: Dr. Nasra Hsu * ADMISSION HISTORY AND PHYSICAL: DATE OF ADMISSION: 02/25/18 PATIENT OF ATTENDING HOSPITALIST: Dr. Barbara Groves.* (DICTATED BY MOOSE ABBOTT) CHIEF COMPLAINT: Uterine fibroid, status post uterine fibroid embolization by Dr. Eid earlier today. HISTORY OF PRESENT ILLNESS: Ms. De Guzman is a 52-year-old female with no significant past medical history, who was referred to Dr. Eid to consider uterine fibroid embolization. The patient unfortunately has been experiencing chronic pelvic and lower back pain for the past 6 to 7 months during her bowel movement. She had colonoscopy that was done and reportedly was normal. She also was evaluated for renal stones with pelvic ultrasound that initially revealed an enlarged uterus. Multiple conservative attempts were made to control her fibroid uteri; however, she continued to have problems also with irregular and unpredictable menses. She had experienced some menorrhagia for at least 3 days on and off for the past couple of months with "gushing" of blood flow and passage of clots. Given her all ongoing symptoms, she first was considered to undergo hysterectomy, but given her large uterine size and the possibility of large abdominal incision, decision was made to attempt uterine fibroid embolization first. The patient was taken to the operating room earlier today by Dr. Eid where she had a successful embolization of her fibroids and returned to the surgical stay unit in a stable condition. We were asked to see the patient for admission and observation overnight for pain control. PAST MEDICAL HISTORY: Significant for uterine fibroids, adenomyosis, and anxiety. Denies any history of lung, liver, heart, or kidney disease. PAST SURGICAL HISTORY: Significant for section, wrist surgery on the right hand back in 2009, and orthopedic tib-fib fracture repair in 2006. She also has history of dilatation and curettage in the past. CURRENT MEDICATIONS: Her medications at home include: 1. Motrin 600 or 800 mg p.o. q.6 hours as needed for pain. 2. Venlafaxine 37.5 mg p.o. daily. ALLERGIES: She is allergic to MORPHINE. FAMILY HISTORY: Reviewed and noncontributory. SOCIAL HISTORY: The patient is a former smoker, used to smoke 1 pack per day and quit at age 29. She occasionally consumes alcohol and consumes 1 cup of caffeine daily. She exercises regularly and she is , lives with her spouse who is the healthcare proxy carrier. REVIEW OF SYSTEMS: See HPI. Otherwise, 12-point review of systems was examined and they were essentially negative. PHYSICAL EXAMINATION GENERAL: She is a healthy-appearing, middle-aged female, appears comfortable and in no acute distress or discomfort at the time of admission. VITAL SIGNS: Reveal temperature of 96.7, pulse of 62, blood pressure of 99/57, respirations of 14 with O2 sat of 91% on 2 L oxygen. HEENT: Head is normocephalic, atraumatic. Sclerae anicteric. PERRLA. EOMs intact. Oropharynx is pink and moist. NECK: Supple. Trachea midline. No cervical adenopathy, thyromegaly, or JVD. LUNGS: Clear to auscultation bilaterally. HEART: Regular rate and rhythm. Normal S1 and S2 without rubs, murmurs, or gallops. BREASTS: Exam deferred at this time. ABDOMEN: Soft and nondistended. There is mild suprapubic tenderness noted on light palpation. No guarding, rigidity, or rebound tenderness. No hernias, masses, or hepatosplenomegaly. BACK: With normal curvature and no CVA tenderness. EXTREMITIES: Without cyanosis, clubbing, or edema. NEUROLOGIC: She appears a little drowsy, but alert on command, oriented, and cooperative. Hand apron operator are equal bilaterally. Tongue is midline and sensation is intact throughout. RECTAL: Exam deferred at this time. IMPRESSION: A 52-year-old female with past medical history significant for uterine fibroid, dysmenorrhea, and menorrhagia as well as chronic low back pain related to enlarged uterus, who is postop day #0 status post uterine fibroid embolization, clinically stable. ASSESSMENT AND PLAN: 1. Status post uterine fibroid embolization. The patient is comfortable and her pain appears to be well controlled. All pain medications were ordered by Dr. Eid including Dilaudid FILTERER, which appears to control her immediate postop discomfort. We will keep close monitoring of her overnight for pain control, likely to be discharged tomorrow. 2. Anxiety. I will continue her venlafaxine as prescribed. 3. DVT prophylaxis. She is a moderate risk and we will utilize SCDs during this admission. 4. Code status. She is a full code. 5. Disposition. Admit for observation and pain control, likely discharge home. TIME SPENT: Approximately 50 minutes spent admitting this patient with greater than 50% on taking history and performing physical exam. I went on and discussed the case with my attending, Dr. Groves, who agreed to plan of care. MOOSE ABBOTT [id number]/CPS #: [id number] ILYA
[2018-02-26] MEDS: Ketorolac INJ* 15 MG/ML 1 ML VIAL IV PUSH SCH (03:56)
[2018-02-26] MEDS: Ondansetron INJ* 2 MG/ML VIAL IV SCH (03:56)
[2018-02-26] MEDS ORDERED: HYDROcodone/ACETAMIN 5-325 MG* 1 TAB PO PRN (08:08)
[2018-02-26] MEDS ORDERED: Ondansetron TAB* 4 MG PO SCH (08:10)
[2018-02-26] MEDS ORDERED: Ketorolac TAB * 10 MG TAB PO SCH (08:10)
[2018-02-26] MEDS ORDERED: Venlafaxine EXT RELEASE CAP* 37.5 MG PO SCH (09:00)
--- NOTE | 2018-02-26 10:29 | PN ---
Progress Note - Progress Note Date of Service: 02/26/18 SOAP: Subjective: Pain controlled, rated at 2/10. "Crampy" in her low pelvis and upper left thigh. Walking independently. + void. Drinking water and has eaten a small amount of crackers. Objective: Selected Entries 02/26/18 02/26/18 07:09 09:00 Temperature 97.5 F Temperature Temporal Artery Source Scan Pulse Rate 53 Respiratory 16 Rate Blood Pressure 135/72 (mmHg) Blood Pressure 88 Mean O2 Sat by Pulse 95 Oximetry NAD, AAO x 3 Abd is soft, minimally tender to palpation over the suprapubic area Right groin is soft, nontender Dressing is clean and dry 2+ pulses palpated at right GLASSIE, pop and DPA Neuromuscular exam of BLE is grossly normal. No weakness. Sensation intact. Assessment: 52 YOF POD #1 s/p Uterine Artery Embolization for what is most likely primarily Adenomyosis. Pain and nausea are well controlled. Plan: 1. Discharge to home. 2. Routine Interventional Radiology follow up will include RN clinic follow up telephone calls 02/28/18 and 03/04/18. Follow up in the IR clinic in 6 weeks and 6 months. 3. Outpatient Rx regimen will include: Toradol 10 mg PO Q 6 hours x 3 days, dispense #15, 1 refill AFTER 3 days of Toradol, start Ibuprofen 600 mg PO every 8 hours x 3 days (DO NOT COMBINE TORADOL AND IBUPROFEN) Warnock 5/325 1 or 2 tablets PO Q 6 hours PRN x 5 days, dispense #30 (thirty), no refills Zofran 4 mg PO Q 6 hours x 5 days, dispense #30, 1 refill Scopoloamine 1.5 mg TD patch: on the morning of Wednesday, replace current patch with new patch and wear x 3 days 4. Patient advised to purchase laxative tea (E.g. Smooth Move) and drink one cup daily x 1 week to avoid constipation.
--- NOTE | 2018-02-26 11:17 | PN ---
Subjective Date of Service: 02/26/18 Interval History: Ms. De Guzman states that she is feeling quite well this morning and is eager for discharge to home. She states that she has minimal pain and denies nausea at this time. Objective Active Medications: Hydrocodone Bitart/Acetaminophen (Upton 5-325 Tab*) 2 tab PO Q6H PRN Al Hydrox/Mg Hydrox/Simethicone (Maalox Plus*) 30 ml PO Q6H PRN Albuterol (Ventolin 2.5 Mg/3 Ml Neb.Aminata*) 2.5 mg INH RT.[id number]-GOTSE AWAKE PRN Ketorolac Tromethamine (Toradol Tab *) 10 mg PO Q6H NORMA Magnesium Hydroxide (Milk Of Magnesia Liq*) 30 ml PO Q4H PRN Ondansetron HCl (Zofran Tab*) 4 mg PO Q6H NORMA Venlafaxine HCl (Effexor Xr Cap*) 37.5 mg PO DAILY NORMA Vital Signs: Temp Pulse Resp BP Pulse Ox 97.5 F 53 16 135/72 95 02/26/18 07:09 02/26/18 07:09 02/26/18 09:00 02/26/18 07:09 02/26/18 09:00 Oxygen Devices in Use Now: Nasal Cannula Appearance: Female lying in bed in NAD Eyes: No Scleral Icterus Ears/Nose/Mouth/Throat: Mucous Membranes Moist Neck: Trachea Midline Respiratory: Symmetrical Chest Expansion and Respiratory Effort, Clear to Auscultation Cardiovascular: NL Sounds; No Murmurs; No JVD, No Edema Abdominal: NL Sounds; No Tenderness; No Distention Lymphatic: No Cervical Adenopathy Extremities: No Edema Skin: No Rash or Ulcers Neurological: Alert and Oriented x 3, NL Muscle Strength and Tone Nutrition: Taking PO's Result Diagrams: 02/25/18 07:30 02/25/18 07:30 Assess/Plan/Problems-Billing Assessment: Ms. De Guzman is a 52 yo F with a PMH of uterine fibroids who was admitted on 02/25 for uterine fibroid embolization. - Patient Problems (1) Uterine fibroid Comment: - Feels well this morning. - S/P embolization. - Continue pain meds and antiemetics as needed. - Follow up with Dr. Eid per routine. (2) DVT prophylaxis Comment: - Early mobility (3) Full code status Comment: Status and Disposition: OBV. Discharge to home.
[2018-02-26 11:35] VITALS: BP 138/74
--- NOTE | 2018-02-26 15:43 | DS ---
CC: Dr. Lee; Dr. Branch * HOSPITAL MEDICINE DISCHARGE SUMMARY: DATE OF ADMISSION: 02/25/18 DATE OF DISCHARGE: 02/26/18 PRIMARY CARE PHYSICIAN: Dr. Branch ATTENDING PHYSICIAN: Dr. Jose Armstrong * (dictation provided by Coral Vasquez NP) PRIMARY DIAGNOSES: 1. Uterine fibroid embolization for uterine fibroids and/or adenomyosis. 2. Anxiety. 3. History of section. 4. History of wrist surgery for right hand in 2009. 5. Orthopedic tib-fib fracture 2006. MEDICATIONS: 1. Venlafaxine 37.5 mg p.o. daily. 2. Scopolamine patch 1.5 mg patch q.72 hours. 3. Zofran 4 mg p.o. q.6 hours p.r.n. nausea. 4. Toradol 10 mg p.o. q.6 hours p.r.n. pain x3 days. 5. Ibuprofen 600 mg p.o. q.8 hours p.r.n. pain (to start after completion of 3 days of Toradol). The patient advised not to take Toradol and ibuprofen at the same time. 6. Hydrocodone with acetaminophen 5/325 one tab p.o. q.6 hours p.r.n. HOSPITAL COURSE: Ms. De Guzman is a 52-year-old female who is G6, P3 and who presented to the hospital for an elective uterine fibroid embolization with Dr. Eid on 02/25/18. Please see dictated H and P from [facility] for complete details. In brief, the patient had had about 6 to 7 months of chronic pelvic and low back pain as well as pain with defecation and heavy menstrual flow. She was evaluated by her gunnery/ordnance officer and then by Dr. Eid with testing including ultimately a pelvis MRI that showed concern for likely uterine fibroids on a background of adenomyosis. Ms. De Guzman underwent uterine fibroid embolization on 02/25/18. This morning, she is doing quite well. She states her pain is well controlled. She has no nausea. She is to be discharged to home today to follow up per routine with Dr. Eid. DISPOSITION: Home. DIET: Regular. ACTIVITY: As tolerated. Per Dr. Eid's instructions, the patient may resume showering, but avoid tub baths, hot tubs, or swimming for 1 week. She is to avoid strenuous exercise and activity for 1 week and then she can slowly increase her activity after that. She is to have pelvic rest for 4 weeks and avoid vaginal intercourse and tampon usage. FOLLOWUP PLANS: Please follow up with Dr. Eid. Please call for an appointment on Wednesday. TIME SPENT: Approximately 45 minutes were spent on the discharge of this patient, more than half time spent with the patient at the bedside reviewing the events leading up to and during this hospitalization, performing the physical examination, and reviewing of my plan of care. CORAL VASQUEZ NP [id number]/CPS #: [id number] ILYA
== END 2018-02-26 13:20 | disposition home or self-care (01) ==
LOC: CHICATH 07:05 → SSU 14:33
PROVIDERS: ADMIT Internal Medicine; ATTEND Radiology Diagnostic Radiology
DX: D25.9 Leiomyoma of uterus, unspecified (principal); F41.9 Anxiety disorder, unspecified; Z79.899 Other long term (current) drug therapy; Z88.5 Allergy status to narcotic agent; Z87.891 Personal history of nicotine dependence
CPT/HCPCS: 36415; 37243; 75736; 76937; 80048; 85025; 96361; 96374; 96375; 96376; 99156; 99157; A9270-GY; C1769; C1884; C1887; G0378; J0780; J1170; J1644; J1885; J2250; J2405; J3010

== ENCOUNTER 2018-07-19 21:33 | Emergency (ER) | payer OTHER ==
--- OUTSIDE RECORDS SUMMARY | 2018-07-19 21:47 | XMS REPORT | Continuity of Care Document ---
:1965 External Reference #:[id number] Author Name Noris Mcallister O.D. Address [address] [place] [address] Care Team Providers Name Role Phone Vanda Branch M.D. Primary Care Physician Unavailable Payers Type Date Identification Numbers Payment Provider Subscriber Policy Number: [id number] [employer] Ppo/Pos/Epo/Nap Tiffany De Guzman Group Number: [id number] [address] PayID: [id number] [place] [address] Advance Directives Description No Information Available Problems Date Description Provider Status Onset: Anemia Active Onset: 03/13/2016 Myopia Noris Mcallister O.D. Active Onset: 07/02/2017 Nuclear senile cataract Noris Mcallister O.D. Active Onset: 06/30/2018 Presbyopia Noris Mcallister O.D. 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 ETOH Use Occasionally consumes alcohol Tobacco Use Start: Unknown End: Patient is a former smoker Unknown Recreational Drug Use Denies Drug Use Smoking Status Reviewed: 06/30/18 Patient is a former smoker Allergies, Adverse Reactions, Alerts Description No Known Drug Allergies Medications Medication Date Status Form Strength Qnty SIG Indications Ordering Provider Venlafaxine HCL 00 Active Caps ER 37.5mg Take 1 Unknown ER 00 24HR Capsule By Mouth Every Day Swallow Whole, DO Not Break, Crush Or Chew Immunizations Description No Information Available Vital Signs Description No Information Available Results Description No Information Available Procedures Date Code Description Status 07/02/2017 82406 Determination Of Refractive State Completed 07/02/2017 90373 Est Patient Comprehensive Exam Completed 03/13/2016 95837 Determination Of Refractive State Completed 03/13/2016 27987 Est Patient Comprehensive Exam Completed 07/25/2013 38209 Determination Of Refractive State Completed 07/25/2013 62645 Est Patient Comprehensive Exam Completed 04/15/2012 54562 Determination Of Refractive State Completed 04/15/2012 31065 New Patient Comprehensive Exam Completed 02/20/2009 92348 Determination Of Refractive State Completed 02/20/2009 91957 Est Patient Comprehensive Exam Completed 02/08/2008 67393 Determination Of Refractive State Completed 02/08/2008 87217 Est Patient Comprehensive Exam Completed 01/28/2006 92049 Determination Of Refractive State Completed 01/28/2006 58020 New Patient Comprehensive Exam Completed Encounters Description No Information Available Plan of Treatment 06/30/2018 - Noris Mcallister O.D.H25.13 Age-related nuclear cataract, bilateralComments:Smoking can increase the risk of developing or worsening any eye related disease, as well as affect your overall health. If you are a smoker , we strongly recommend that you quit.If you are not a smoker, we strongly recommend that you do not start. You have been diagnosed with a cataract in the left eye. I cannot improve your vision with glasses. We will schedule an evaluation with Dr. Seaman or Dr. Benitez for the surgery. We recommend that you write down any questions you have and bring them with you to your appointment so one of the doctors can answer them for you. If you have any questions before your appointment regarding surgery, call and ask for Vanda or Mehul up:Cataract Evaluation with Dr. Seaman LEFT EYEH52.13 Myopia, bilateralComments:You have Myopia, or near sightedness. I have given you a prescription for glasses.H52.4 PresbyopiaComments:You have presbyopia. This is when the lens in your eye loses the ability to change focus , and happens as we age. A pair of reading glasses will help you see up close.
[2018-07-19] MEDS ORDERED: cloNIDine TAB* 0.1 MG PO ONE (22:47)
[2018-07-19] MEDS ORDERED: Ibuprofen TAB* 600 MG PO ONE (22:59)
--- NOTE | 2018-07-19 23:00 | ED ---
Hypertension - HPI Summary HPI Summary: Patient in planes of mild sensation of pressure in her head and concern for elevated blood pressure. States her blood pressure has always been around 117/ 75, but was elevated during a series of medical test for possible Alzheimer's one week ago in [place]. States elevated SBP was in the 160s at that time. Triage SBP 191/117. Denies any other symptoms, injury or pain. Denies medical history. Sees PCP once a year for checkup. Denies family history of HTN. - History of Current Complaint Chief Complaint: EDHeadache Stated Complaint: GENERAL Time Seen by Provider: 07/19/18 22:25 Hx Obtained From: Patient Hx Last Menstrual Period: 28 days ago Onset/Duration: Started Days Ago - Risk Factors Cardiac Risk Factors: Negative - Allergies/Home Medications Allergies/Adverse Reactions: Allergies Allergy/AdvReac Type Severity Reaction Status Date / Time morphine Allergy Itching Verified 07/19/18 21:43 PMH/Surg Hx/FS Hx/Imm Hx Endocrine/Hematology History: Reports: Hx Anemia Denies: Hx Diabetes, Hx Thyroid Disease Cardiovascular History: Denies: Hx Hypertension, Hx Pacemaker/ICD, Other Cardiovascular Problems/ Disorders Respiratory History: Denies: Hx Asthma, Hx Chronic Obstructive Pulmonary Disease (COPD), Other Respiratory Problems/Disorders GI History: Denies: Hx Ulcer, Other GI Disorders History: Denies: Hx Renal Disease Musculoskeletal History: Denies: Other Musculoskeletal History Sensory History: Reports: Hx Contacts or Glasses - GLASSES Denies: Hx Hearing Aid Opthamlomology History: Reports: Hx Contacts or Glasses - GLASSES Neurological History: Denies: Other Neuro Impairments/Disorders Psychiatric History: Denies: Hx Panic Disorder - Surgical History Surgery Procedure, Year, and Place: TONSILLECTOMY-AGE 22. 3 [id number]/ [facility] [place]. tTIB/FIB FRACTURE LEFT ANKLE REPAIR-[facility] - SCREWS & PLATE. RIGHT CARPAL TUNNEL [id number] AND LT CARPAL TUNNEL - 2008. 3 ABORTIONS WHEN YOUNGER. MAXIMILIANO BUNIONECTOMY - WITH SCREWS. .NOVASURE ABLATION- 2015 or 2017 Hx Anesthesia Reactions: No Infectious Disease History: No Infectious Disease History: Reports: Traveled Outside the [place] in Last 30 Days - Felicia Denies: Hx Hepatitis, Hx Human Immunodeficiency Virus (HIV) - Family History Known Family History: Positive: Hypertension - Social History Alcohol Use: unable to assess Alcohol Amount: WEEKENDS Hx Substance Use: No Substance Use Type: Reports: None Hx Tobacco Use: Yes Smoking Status (MU): Former Smoker Type: Cigarettes Amount Used/How Often: 1 PPD X 12 YRS Length of Time of Smoking/Using Tobacco: 12 YRS Have You Smoked in the Last Year: No Review of Systems Constitutional: Negative Eyes: Negative ENT: Negative Cardiovascular: Negative Respiratory: Negative Gastrointestinal: Negative Genitourinary: Negative Musculoskeletal: Negative Skin: Negative Positive: Headache Psychological: Normal All Other Systems Reviewed And Are Negative: Yes Physical Exam - Summary Physical Exam Summary: Physical exam unremarkable. Neuro exam normal. Triage Information Reviewed: Yes Vital Signs On Initial Exam: Initial Vitals Temp Pulse Resp BP Pulse Ox 97.3 F 80 16 191/117 100 07/19/18 21:35 07/19/18 21:35 07/19/18 21:35 07/19/18 21:35 07/19/18 21:35 Vital Signs Reviewed: Yes Appearance: Positive: Well-Appearing Skin: Positive: Warm Head/Face: Positive: Normal Head/Face Inspection Eyes: Positive: Normal Neck: Positive: Supple Respiratory/Lung Sounds: Positive: Clear to Auscultation Cardiovascular: Positive: Normal Abdomen Description: Positive: Nontender Musculoskeletal: Positive: Normal Neurological: Positive: Normal Psychiatric: Positive: Normal AVPU Assessment: Alert - Lane Coma Scale Best Eye Response: 4 - Spontaneous Best Motor Response: 6 - Obeys Commands Best Verbal Response: 5 - Oriented Coma Scale Total: 15 Diagnostics - Vital Signs Vital Signs Temp Pulse Resp BP Pulse Ox 07/19/18 21:35 97.3 F 80 16 191/117 100 - Laboratory Lab Statement: Any lab studies that have been ordered have been reviewed, and results considered in the medical decision making process. Hypertension Course/Dx - Course Course Of Treatment: Patient complains of mild sensation of pressure in her head and concern for elevated blood pressure. States her blood pressure has always been around 117/75, but was elevated during a series of medical test for possible Alzheimer's one week ago in [place]. States elevated SBP was in the 160s at that time. Triage SBP 191/117. Denies any other symptoms, injury or pain. Denies medical history. Sees PCP once a year for checkup. Denies family history of HTN. Physical exam unremarkable. Repeat blood pressure readings consistently in SBP 160s. Discussed patient with Dr. Stock who recommended clonidine 0.1 mg by mouth and Rx for hypertension meds. Patient opted to defer treatment and follow-up with primary care. Risks of hypertension were discussed with patient and patient was urged to follow-up with primary care. Patient understands and states she will follow up. - Diagnoses Provider Diagnoses: Elevated blood pressure reading Discharge - Sign-Out/Discharge Documenting (check all that apply): Patient Departure - Discharge Plan Condition: Stable Disposition: HOME Patient Education Materials: Hypertension (ED) Referrals: Vanda Branch MD [Primary Care Provider] - Additional Instructions: Follow-up with primary care for further evaluation and management of potential hypertension. Return to the ED for any new or worsening symptoms - Billing Disposition and Condition Condition: STABLE Disposition: Home
[2018-07-19 23:25] VITALS: BP 165/108
== END 2018-07-19 23:24 | disposition home or self-care (01) ==
LOC: ED 21:33
DX: R03.0 Elevated blood-pressure reading, without diagnosis of hypertension (principal); R51 Headache; Z88.5 Allergy status to narcotic agent; Z82.49 Family history of ischemic heart disease and other diseases of the circulatory system; Z87.891 Personal history of nicotine dependence
CPT/HCPCS: 99282; A9270-GY

== ENCOUNTER 2018-07-29 20:28 | Emergency (ER) | payer OTHER ==
--- OUTSIDE RECORDS SUMMARY | 2018-07-29 20:41 | XMS REPORT | Continuity of Care Document ---
:1965 External Reference #:[id number] Author Name Jhonny Seaman M.D. Address [address] [place] [address] Care Team Providers Name Role Phone Vanda Branch M.D. 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 2019 left eye [place], three M.D. times a day, start the day before surgery Ketorolac 07/25/ Active Solution 0.5% 10ml use one Jhonny Abdullahi Tromethamine 2019 drop in [place], the left M.D. eye three times a day, start the day before surgery Prednisolone 07/25/ Active Suspension 1% 10ml 1 drops Jhonny NievesFam Acetate 2019 left eye [place], three M.D. times a day. taper as directed Desvenlafaxine / Active Tablets ER 50mg Unknown Succinate ER 0000 24HR Venlafaxine HCL / Hx Caps ER 24HR 37.5mg Take 1 Unknown ER 0000 - Capsule 07/24/ By Mouth 2019 Every Day Swallow Whole, DO Not Break, Crush Or Chew Immunizations Description No Information Available Vital Signs Description No Information Available Results Description No Information Available Procedures Date Code Description Status 06/30/2018 97424 Est Patient Comprehensive Exam Completed 07/02/2017 03289 Determination Of Refractive State Completed 07/02/2017 06151 Est Patient Comprehensive Exam Completed 03/13/2016 33585 Determination Of Refractive State Completed 03/13/2016 20206 Est Patient Comprehensive Exam Completed 07/25/2013 17502 Determination Of Refractive State Completed 07/25/2013 34815 Est Patient Comprehensive Exam Completed 04/15/2012 47142 Determination Of Refractive State Completed 04/15/2012 46998 New Patient Comprehensive Exam Completed 02/20/2009 53317 Determination Of Refractive State Completed 02/20/2009 41321 Est Patient Comprehensive Exam Completed 02/08/2008 20673 Determination Of Refractive State Completed 02/08/2008 99371 Est Patient Comprehensive Exam Completed 01/28/2006 55102 Determination Of Refractive State Completed 01/28/2006 53536 New Patient Comprehensive Exam Completed Encounters Description No Information Available Plan of Treatment Future Appointment(s):09/01/2018 1:30 pm - Jhonny Seaman M.D. at [facility], 08/31/2018 7:00 am - Jhonny Seaman M.D. at [facility], 09/08/2018 11:00 am - Noris Mcallister O.D. at [facility], 2018 - Jhonny Seaman M.D.H25.12 Age-related nuclear cataract, left eyeComments:Smoking can increase the risk of developing or worsening any eye related disease, as well as affect your overall health. If you are a smoker, we strongly recommend that you quit.If you are not a smoker, we strongly recommend that you do not start. Dense cataract in the left eye.Follow up:6 Month Follow Up Diagnostic Refraction You can expect to have your eyes dilated at your next visit. If Dr. Seaman orders any additional testing, it may require extra time. We recommend that you bring sunglasses, as dilation drops often make you light sensitive until they wear off. We always recommendyou bring someone to drive you home if you are uncomfortable driving with your eyes dilated. If you have any questions before your next visit, feel free to call our office at .H25.11 Age-related nuclear cataract, right eye
--- NOTE | 2018-07-29 22:55 | ED ---
Complex/Multi-Sys Presentation - HPI Summary HPI Summary: 52 year old F presenting to [facility] with a chief complaint of intermittent episodes of hypertension for one week. The patient rates the pain 0/10 in severity. Symptoms aggravated by nothing. Symptoms alleviated by nothing. Patient reports fatigue and head pressure. She additionally complains of nausea. She denies feeling of losing consciousness and BLE edema. Patient does not have hx hypertension. She notes that she started on an antidepressant a few months ago. She recently had fibroid embolism. Patient is in menopause. - History Of Current Complaint Chief Complaint: EDGeneral Time Seen by Provider: 07/29/18 22:49 Hx Obtained From: Patient Onset/Duration: Lasting Weeks - 1, Still Present Timing: Intermittent, Lasting: Severity Currently: None Aggravating Factor(s): Nothing Alleviating Factor(s): Nothing Associated Signs And Symptoms: Positive: Other - fatigue and head pressure, nausea; NEGATIVE: feeling of losing consciousness and BLE edema - Allergies/Home Medications Allergies/Adverse Reactions: Allergies Allergy/AdvReac Type Severity Reaction Status Date / Time morphine Allergy Itching Verified 07/19/18 21:43 PMH/Surg Hx/FS Hx/Imm Hx Previously Healthy: No Endocrine/Hematology History: Reports: Hx Anemia Denies: Hx Diabetes, Hx Thyroid Disease Cardiovascular History: Denies: Hx Hypertension, Hx Pacemaker/ICD, Other Cardiovascular Problems/ Disorders Respiratory History: Denies: Hx Asthma, Hx Chronic Obstructive Pulmonary Disease (COPD), Other Respiratory Problems/Disorders GI History: Denies: Hx Ulcer, Other GI Disorders History: Denies: Hx Renal Disease Musculoskeletal History: Denies: Other Musculoskeletal History Sensory History: Reports: Hx Contacts or Glasses - GLASSES Denies: Hx Hearing Aid Opthamlomology History: Reports: Hx Contacts or Glasses - GLASSES Neurological History: Denies: Other Neuro Impairments/Disorders - Surgical History Surgery Procedure, Year, and Place: TONSILLECTOMY-AGE 22. 3 [id number]/ [facility] [place]. tTIB/FIB FRACTURE LEFT ANKLE REPAIR-[facility] [place] - SCREWS & PLATE. RIGHT CARPAL TUNNEL [id number] AND LT CARPAL TUNNEL - 2008. 3 ABORTIONS WHEN YOUNGER. MAXIMILIANO BUNIONECTOMY - WITH SCREWS. .NOVASURE ABLATION- 2016 or 2017 Hx Anesthesia Reactions: No Infectious Disease History: No Infectious Disease History: Reports: Traveled Outside the [place] in Last 30 Days Denies: Hx Hepatitis, Hx Human Immunodeficiency Virus (HIV) - Family History Known Family History: Positive: Hypertension - Social History Alcohol Use: Weekly Alcohol Amount: WEEKENDS Hx Substance Use: No Substance Use Type: Reports: None Hx Tobacco Use: Yes Smoking Status (MU): Former Smoker Type: Cigarettes Amount Used/How Often: 1 PPD X 12 YRS Length of Time of Smoking/Using Tobacco: 12 YRS Have You Smoked in the Last Year: No Review of Systems Positive: Fatigue, Other - hypertension Positive: Nausea Negative: Edema Neurological: Negative - feeling of losing consciousness, Other - head pressure All Other Systems Reviewed And Are Negative: Yes Physical Exam - Summary Physical Exam Summary: Appearance: Well-appearing, Well-nourished, lying in bed comfortably Skin: Warm, dry, no obvious rash Eyes: sclera anicteric, no conjunctival pallor ENT: mucous membranes moist, pharynx appears normal Neck: Supple, nontender Respiratory: Clear to auscultation, no signs of respiratory distress Cardiovascular: Normal S1, S2. No murmurs. Normal distal pulses in tibial and radial bilaterally. Abdomen: Soft, nontender, normal active bowel sounds present Musculoskeletal: Normal, Strength/ROM Intact Neurological: A&Ox3, awake and alert, mentation is normal, speech is fluent and appropriate Psychiatric: affect is normal, does not appear anxious or depressed Triage Information Reviewed: Yes Vital Signs On Initial Exam: Initial Vitals Temp Pulse Resp BP Pulse Ox 97.0 F 88 16 183/100 98 07/29/18 20:32 07/29/18 20:32 07/29/18 20:32 07/29/18 20:32 07/29/18 20:32 Vital Signs Reviewed: Yes Diagnostics - Vital Signs Vital Signs Temp Pulse Resp BP Pulse Ox 07/29/18 20:32 97.0 F 88 16 183/100 98 - Laboratory Lab Statement: Any lab studies that have been ordered have been reviewed, and results considered in the medical decision making process. Complex Multi-Symp Course/Dx Course Of Treatment: 52 year old F presenting to [facility] with a chief complaint of intermittent episodes of hypertension for one week. She additionally complains of nausea and an upset stomach. Patient does not have hx hypertension. She notes that she started on an antidepressant a few months ago. Discussed discharge plan with patient. She will be discharged with follow up from her PCP. She was given instructions to return to the ED for new or worsening symptoms. She is agreeable to discharge. - Diagnoses Provider Diagnoses: High blood pressure Discharge - Sign-Out/Discharge Documenting (check all that apply): Patient Departure - Discharge - Discharge Plan Condition: Good Disposition: HOME Patient Education Materials: Chronic Hypertension (ED) Referrals: Vanda Branch MD [Primary Care Provider] - Additional Instructions: Acute symptoms referable to elevated blood pressure is a fairly unusual condition, and certainly I am not seeing anything in your history or physical exam to make me concerned about that. The body has excellent mechanisms in place to protect itself from spikes, even fairly high spikes, in blood pressure. So in the short run I am not concerned about these readings. Nonetheless if they are persistent it is something your doctor may wish to treat , as over months and years elevated blood pressure can cause damage to a number of different parts of your body, and treatment does reduce that risk. - Attestation Statements Document Initiated by Scribe: Yes Documenting Scribe: Kat Maharaj Provider For Whom Navie is Documenting (Include Credential): Surya Valerio MD Scribe Attestation: I, Kat Maharaj, scribed for Surya Valerio MD on 07/30/18 at 0015.
[2018-07-29 23:22] VITALS: BP 123/76
== END 2018-07-29 23:25 | disposition home or self-care (01) ==
LOC: ED 20:28
DX: R03.0 Elevated blood-pressure reading, without diagnosis of hypertension (principal); R53.83 Other fatigue; R11.0 Nausea; Z88.5 Allergy status to narcotic agent; Z87.891 Personal history of nicotine dependence
CPT/HCPCS: 99282

== ENCOUNTER 2018-10-26 10:42 | Day surgery (SDC) | payer OTHER ==
[~2018-10-26 10:42] MED LIST: Buffered Lidocaine 1% SYRIN* 1 ML/SYRINGE INTRADERM ONE
[2018-10-26] MEDS ORDERED: Midazolam* 1 MG/ML 2 ML VIAL (2 MG) ONE (13:19)
[2018-10-26] MEDS ORDERED: Povidone Iodine 5% OPTH* 30 ML BTL ONE (13:58)
[2018-10-26] MEDS ORDERED: Ketorolac 0.5% OPHTH (NF) 0.5 % 5 ML BTL ONE (13:58)
[2018-10-26] MEDS ORDERED: Lidocaine 2% EPI 1:200000 MPF*10-20 ML VIAL ONE (13:58)
[2018-10-26] MEDS ORDERED: acetaZOLAMIDE TAB* 250 MG ONE (13:58)
[2018-10-26] MEDS ORDERED: Phenylephrine OPHTH SOL 2.5%* 2 ML ONE (13:58)
[2018-10-26] MEDS ORDERED: Proparacaine 0.5% OPHTH.SOL* 15 ML BTL ONE (13:58)
[2018-10-26] MEDS ORDERED: Cyclopentolate 1% OPTH.SOL* 2 ML BTL ONE (13:58)
[2018-10-26] MEDS ORDERED: Lidocaine 1%* 5 ML VIAL ONE (13:58)
[2018-10-26] MEDS ORDERED: Neomycin/Polymy/Dex OPTH.SUSP* MAXITROL 0.1% 5 ML ONE (13:58)
[2018-10-26 14:03] VITALS: BP 144/90
--- NOTE | 2018-10-26 22:11 | OP ---
OPERATIVE NOTE: DATE OF OPERATION: 10/26/18 - [facility] DATE OF : 65 SURGEON: Jhonny Seaman M.D. PREOPERATIVE DIAGNOSIS: Cataract, left eye. POSTOPERATIVE DIAGNOSIS: Cataract, left eye. OPERATIVE PROCEDURE: Extracapsular cataract extraction with intraocular lens implant, left eye. PROCEDURE: The patient was brought to the operating room after being given 1/2 % Alcaine with epinephrine drops in the preoperative area. The eye was prepped and draped in the usual sterile fashion. Sterile drape and eyelid speculum were placed. Again, topical 1/2% Alcaine with epinephrine was given. A paracentesis incision was made at the 3 o'clock position with the No.75 blade. Clear cornea incision 2.2 x 2.2-mm was created at the 6 o'clock position starting at the anterior limbus using the 2.2-mm keratome. The anterior chamber was irrigated with 0.4 mL of 1% non-preservative intracameral lidocaine and filled with DisCoVisc. A capsulorrhexis was completed using the cystotome and the Utrata forceps. Hydrodissection was performed with balanced salt solution. The lens nucleus was removed with the Phacoemulsification handpiece without incident. Cortex was removed with the irrigation-aspiration handpiece. The capsular bag was re-inflated using DisCoVisc and an SV25T4 of 14.5 implant was inserted with the shooter oriented to the 74 degree meridian. Preoperative horizontal reference brody were made with the patient seated in the preoperative area. All measurements were confirmed with ORA. The irrigation-aspiration handpiece was used to remove all residual DisCoVisc. The eye was refilled with balanced salt solution and the wound checked and found to be watertight. Topical Maxitrol drops were given. [id number]/[facility] #: [id number] [facility]
== END 2018-10-26 14:57 | disposition home or self-care (01) ==
LOC: OREAST 10:42
PROVIDERS: ATTEND Specialist
DX: H25.12 Age-related nuclear cataract, left eye (principal); Z87.891 Personal history of nicotine dependence
CPT/HCPCS: 81025; A9270-GY; J2250; V2788

== ENCOUNTER 2018-11-02 06:25 | Day surgery (SDC) | payer OTHER ==
[~2018-11-02 06:25] MED LIST changes: +Acetaminophen TAB* 325 MG PO PRN
[2018-11-02] MEDS ORDERED: Midazolam* 1 MG/ML 2 ML VIAL (2 MG) ONE ×2 (08:04→08:35)
[2018-11-02 09:26] VITALS: BP 131/85
--- NOTE | 2018-11-02 10:25 | OP ---
OPERATIVE NOTE: DATE OF OPERATION: 11/02/18 DATE OF : 65 SURGEON: Jhonny Seaman M.D. PREOPERATIVE DIAGNOSIS: Cataract, right eye. POSTOPERATIVE DIAGNOSIS: Cataract, right eye. OPERATIVE PROCEDURE: Extracapsular cataract extraction with intraocular lens implant right eye. PROCEDURE: The patient was brought to the operating room after being given 1/2% Alcaine with epineph rine drops in the preoperative area. The eye was prepped and draped in the usual sterile fashion. S terile drape and eyelid speculum were placed. Again, topical 1/2% Alcaine with epinephrine was given . A paracentesis incision was made at the o'clock position with the No.75 blade. Clear corne a incision 2.2 x 2.2-mm was created at the o'clock position starting at the anterior limbus us ing the 2.2-mm keratome. The anterior chamber was irrigated with 0.4 mL of 1% non-preservative intra cameral lidocaine and filled with DisCoVisc. A capsulorrhexis was completed using the cystotome and the Utrata forceps. Hydrodissection was performed with balanced salt solution. The lens nucleus was removed with the Phacoemulsification handpiece without incident. Cortex was removed with the irrigat ion-aspiration handpiece. The capsular bag was re-inflated using DisCoVisc and an [id number] implant was inserted with the shooter oriented to the 98 degree [place]. Horizontal reference brody were ma de with the patient seated in the preoperative area. All measurements were confirmed with ORA. The i rrigation-aspiration handpiece was used to remove all residual DisCoVisc. The eye was refilled with balanced salt solution and the wound checked and found to be watertight. Topical Maxitrol drops were given. [id number]/[facility] #: [id number]
[2018-11-02] MEDS ORDERED: acetaZOLAMIDE TAB* 250 MG ONE (13:45)
[2018-11-02] MEDS ORDERED: Proparacaine 0.5% OPHTH.SOL* 15 ML BTL ONE (13:45)
[2018-11-02] MEDS ORDERED: Neomycin/Polymy/Dex OPTH.SUSP* MAXITROL 0.1% 5 ML ONE (13:45)
[2018-11-02] MEDS ORDERED: Lidocaine 2% EPI 1:200000 MPF*10-20 ML VIAL ONE (13:45)
[2018-11-02] MEDS ORDERED: Povidone Iodine 5% OPTH* 30 ML BTL ONE (13:45)
[2018-11-02] MEDS ORDERED: Cyclopentolate 1% OPTH.SOL* 2 ML BTL ONE (13:45)
[2018-11-02] MEDS ORDERED: Lidocaine 1%* 5 ML VIAL ONE (13:45)
[2018-11-02] MEDS ORDERED: Ketorolac 0.5% OPHTH (NF) 0.5 % 5 ML BTL ONE (13:45)
[2018-11-02] MEDS ORDERED: Phenylephrine OPHTH SOL 2.5%* 2 ML ONE (13:45)
== END 2018-11-02 09:57 | disposition home or self-care (01) ==
LOC: OREAST 06:25
PROVIDERS: ATTEND Specialist
DX: H25.11 Age-related nuclear cataract, right eye (principal); Z87.891 Personal history of nicotine dependence
CPT/HCPCS: A9270-GY; J2250; V2788

== ENCOUNTER 2019-09-11 16:34 | Emergency (ER) | payer OTHER ==
[2019-09-11] MEDS ORDERED: Ketorolac INJ* 30 MG/ML 1 ML VIAL IM ONE (17:07)
[2019-09-11 17:24] LABS: Rapid Strep Molecular Negative (Negative)
[2019-09-11 17:30] LABS: Influenza A Molecular Negative (Negative); Influenza B Molecular Negative (Negative)
--- NOTE | 2019-09-11 17:47 | ED ---
Throat Pain/Nasal Congestion - HPI Summary HPI Summary: 54-year-old female presents with sore throat. She also admits to a headache. This is not the worst headache of life. She denies any history of headaches she admits to sinus congestion and pressure. She denies any cough. No chest pain or shortness of breath. She denies any medical conditions. No one around her symptoms. - History of Current Complaint Chief Complaint: EDThroatPain Time Seen by Provider: 09/11/19 16:38 - Allergies/Home Medications Allergies/Adverse Reactions: Allergies Allergy/AdvReac Type Severity Reaction Status Date / Time morphine Allergy Itching Verified 09/11/19 16:35 Home Medications: Home Medications Potassium Gluconate [Potassium] 600 mg PO DAILY 10/24/18 [History Confirmed 03/24] Estradiol/Progesterone [Bijuva 1 mg-100 mg Capsule] 1 cap PO DAILY 09/11/19 [ History Confirmed 09/11/19] Ibuprofen TAB* [Motrin TAB* 600 MG] 600 mg PO Q8H PRN 09/11/19 [History Confirmed 09/11/19] PMH/Surg Hx/FS Hx/Imm Hx Endocrine/Hematology History: Reports: Hx Anemia Denies: Hx Diabetes, Hx Thyroid Disease Cardiovascular History: Denies: Hx Hypertension, Hx Pacemaker/ICD, Other Cardiovascular Problems/ Disorders Respiratory History: Denies: Hx Asthma, Hx Chronic Obstructive Pulmonary Disease (COPD), Other Respiratory Problems/Disorders GI History: Denies: Hx Ulcer, Other GI Disorders History: Reports: Other Problems/Disorders - Fibroid embolism-2018 Denies: Hx Renal Disease Musculoskeletal History: Denies: Other Musculoskeletal History Sensory History: Reports: Hx Cataracts - Bilateral, Hx Contacts or Glasses - GLASSES Denies: Hx Glaucoma, Hx Hearing Aid Opthamlomology History: Reports: Hx Cataracts - Bilateral, Hx Contacts or Glasses - GLASSES Denies: Hx Glaucoma Neurological History: Denies: Other Neuro Impairments/Disorders Psychiatric History: - Surgical History Surgery Procedure, Year, and Place: TONSILLECTOMY-AGE 22. 3 [id number]/ [facility]. tTIB/FIB FRACTURE LEFT ANKLE REPAIR-[facility] [place] - SCREWS & PLATE. RIGHT CARPAL TUNNEL [id number] AND LT CARPAL TUNNEL - 2008. 3 ABORTIONS WHEN YOUNGER. MAXIMILIANO BUNIONECTOMY - WITH SCREWS. .NOVASURE ABLATION- 2016 or 2017 Hx Anesthesia Reactions: No - Immunization History Date of Tetanus Vaccine: UTD Date of Influenza Vaccine: NO Immunizations Up to Date: Yes Infectious Disease History: No Infectious Disease History: Denies: Hx Hepatitis, Hx Human Immunodeficiency Virus (HIV), Traveled Outside the [place] in Last 30 Days - Family History Known Family History: Positive: Hypertension - Social History Alcohol Use: Weekly Alcohol Amount: WEEKENDS Hx Substance Use: No Substance Use Type: Reports: None Hx Tobacco Use: Yes Smoking Status (MU): Former Smoker Type: Cigarettes Amount Used/How Often: 1 PPD X 12 YRS Length of Time of Smoking/Using Tobacco: 12 YRS Have You Smoked in the Last Year: No Review of Systems Negative: Fever Positive: Sore Throat Negative: Chest Pain Negative: Shortness Of Breath Positive: Headache All Other Systems Reviewed And Are Negative: Yes Physical Exam Triage Information Reviewed: Yes Vital Signs On Initial Exam: Initial Vitals Temp Pulse Resp BP Pulse Ox 98.0 F 67 16 146/89 100 09/11/19 16:35 09/11/19 16:35 09/11/19 16:35 09/11/19 16:35 09/11/19 16:35 Vital Signs Reviewed: Yes Appearance: Positive: Well-Appearing Skin: Positive: Warm, Dry Head/Face: Positive: Normal Head/Face Inspection Eyes: Positive: Normal, EOMI, GREGORIO, Conjunctiva Clear ENT: Positive: Pharyngeal erythema, TMs normal, Uvula midline, Other - soft palate symmetric. Negative: Tonsillar swelling, Tonsillar exudate, Trismus, Muffled voice Respiratory/Lung Sounds: Positive: Clear to Auscultation, Breath Sounds Present Cardiovascular: Positive: Normal, RRR Abdomen Description: Positive: Nontender, Soft Bowel Sounds: Positive: Present Musculoskeletal: Positive: Normal Neurological: Positive: Normal Psychiatric: Positive: Normal Procedures - Sedation Patient Received Moderate/Deep Sedation with Procedure: No Diagnostics - Vital Signs Vital Signs Temp Pulse Resp BP Pulse Ox 09/11/19 16:35 98.0 F 67 16 146/89 100 - Laboratory Lab Results: Lab Results 09/11/19 09/11/19 Range/Units 17:00 17:00 Influenza A (Rapid) Negative (Negative) Influenza B (Rapid) Negative (Negative) Group A Strep Rapid Negative (Negative) Lab Statement: Any lab studies that have been ordered have been reviewed, and results considered in the medical decision making process. EENT Course/Dx - Course Course Of Treatment: 54-year-old female presents with sore throat. She also admits to a headache. This is not the worst headache of life. She denies any history of headaches she admits to sinus congestion and pressure. She denies any cough. No chest pain or shortness of breath. She denies any medical conditions. No one around her symptoms. On exam pharynx erythematous. Uvula midline. Soft palate symmetric. Normal neuro exam. Strep and flu negative. Discuss likely viral. We'll treat supportively. Patient understands agrees plan. - Differential Diagnoses Differential Diagnoses: Sinusitis, Tonsilitis, URI/Bronchitis - Diagnoses Provider Diagnoses: Pharyngitis Discharge ED - Sign-Out/Discharge Documenting (check all that apply): Patient Departure - Discharge Plan Condition: Good Disposition: HOME Patient Education Materials: Pharyngitis (ED) Referrals: Vanda Branch MD [Primary Care Provider] - Additional Instructions: Take Tylenol or ibuprofen for pain every 6 hours Can gargle salt water Can use cough drops or products such as cloraseptic spray follow up with primary care within 5 days Return to ED if develop any new or worsening symptoms - Billing Disposition and Condition Condition: GOOD Disposition: Home
[2019-09-11 18:16] VITALS: BP 128/76
== END 2019-09-11 18:14 | disposition home or self-care (01) ==
LOC: ED 16:34
DX: J02.9 Acute pharyngitis, unspecified (principal); R51 Headache; Z88.5 Allergy status to narcotic agent
CPT/HCPCS: 87651; 96372; 99282; J1885